=== PATIENT | female | born 1995 | race Caucasian/White ===

== ENCOUNTER → 2017-07-27 | Outpatient (CLI) | payer MEDICAID ==
[~2017-07-27] MED LIST: ACET1TAB43 PO; AMOX500C2 PO; AZIT250T12 PO; CODE-54 PO; DEXT15SY5 PO; DOCU100C37 PO; FERR-74 PO; IBUP-1773 PO; PREN-102 PO
--- NOTE | 2017-07-27 18:23 | Diagnostic Imaging Report ---
Transabdominal and transvaginal pelvic ultrasound. INDICATION: Pelvic pain. FINDINGS: The uterus is 7.8 x 4.2 x 3.7 cm. The endometrial stripe is 6 mm in thickness. There is no focal myometrial mass identified. The right ovary is 2.3 x 3.3 x 3.8 cm. The left ovary is 2.8 x 1.4 x 1.5 cm. Prominent veins are seen in the left adnexa. No solid mass in the adnexa identified. IMPRESSION: Incidental note of prominent veins in the left adnexa is seen. Dictated by: Dictated on workstation # [id number]
== END ==
LOC: RAD 12:27
PROVIDERS: ATTEND Obstetrics & Gynecology
DX: R10.2 Pelvic and perineal pain (principal)
CPT/HCPCS: 76830; 76856

== ENCOUNTER 2018-07-13 12:06 | Emergency (ER) | payer SELFPAY ==
[~2018-07-13] VITALS: Ht 167.6 cm; Wt 64.4 kg
[~2018-07-13 12:06] MED LIST changes: -FERR-74 PO; +FERR325T18 PO
--- OUTSIDE RECORDS SUMMARY | 2018-07-13 12:42 | XMS REPORT | Continuity of Care Document ---
Author Author [facility] Organization [facility] Address Unknown Phone Unavailable Allergies Active Description Code Type Severity Reaction Onset Reported/Identified Relationship to Patient Clinical Status Yes No Known Drug Allergies [id number] Drug Allergy Unknown N/A 03/05/2015 Medications There is no data. 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, UNSPECFIED 03/05/2015 MIKE PERDOMO DO Ot 525.9 DENTAL DISORDER NOS 03/05/2015 MIKE PERDOMO DO Ot 648.93 OTH CURR COND-ANTEPARTUM 06/04/2015 ALIZE ROUSE APRN Ot J40 BRONCHITIS, NOT SPECIFIED ACUTE OR CH 06/04/2015 ALIZE ROUSE APRN Ot Z33.1 STATE, INCIDENTAL 06/04/2015 ALIZE ROUSE APRN Ot Z3A.29 29 WEEKS GESTATION OF 08/15/2015 ANA REEVES DO Ot B95.1 STREPTOCOCCUS, GROUP B, CAUSING DISEASES 08/15/2015 ANA REEVES DO Ot D62 ACUTE POSTHEMORRHAGIC ANEMIA 08/15/2015 ANA REEVES DO, Ot O23.93 UNSP TRACT INFECTION IN , TH 08/15/2015 ANA REEVES DO, Ot O90.81 ANEMIA OF THE PUERPERIUM 08/15/2015 ANA REEVES DO Ot Z23 ENCOUNTER FOR IMMUNIZATION 08/15/2015 ANA REEVES DO Ot Z37.0 SINGLE LIVE 08/15/2015 ANA REEVES DO, Ot Z3A.39 39 WEEKS GESTATION OF 08/09/2017 ANA REEVES DO Ot R10.2 PELVIC AND PERINEAL PAIN Procedures Code Description Performed By Performed On [id number] DIVISION OF FEMALE PERINEUM, EXTERNAL AP 08/13/2015 [id number] DELIVERY OF PRODUCTS OF CONCEPTION, EXTE 08/13/2015 Results There is no data. Encounters ACCT No. Visit Date/Time Discharge Status Pt. Type Provider Facility Loc./Unit Complaint [id number] 07/27/2017 12:27:00 07/27/2017 23:59:59 CLS Outpatient ANA REEVES DO [facility] RAD ACUTE PELVIC PAIN [id number] 08/13/2015 01:04:00 08/15/2015 12:15:00 DIS Inpatient ANA REEVES DO [facility] LDRP LABOR [id number] 06/04/2015 15:29:00 06/04/2015 15:49:00 DIS Emergency ALIZE ROUSE APRN [facility] ER COUGH,DIFFICLUTY BREATHING AT 29 WEEKS [id number] 03/05/2015 01:10:00 03/05/2015 02:34:00 DIS Emergency MIKE PERDOMO DO [facility] ER DENTAL PAIN,16 WKS PREG [id number] 03/05/2015 05:07:27 ACT Document Registration
--- OUTSIDE RECORDS SUMMARY | 2018-07-13 12:42 | XMS REPORT | Clinical Summary ---
Author Author [facility] Organization [facility] Address Unknown Phone Unavailable Care Team Providers [facility] [employer] Professor Name Role Phone PCP Unavailable Allergies Not on File Current Medications Not on file Active Problems Not on file Social History Tobacco Use Types Packs/Day Years Used Date Never Assessed Sex Assigned at Date Recorded Not on file Last Filed Vital Signs Not on file Plan of Treatment Not on file Results Not on filefrom Last 3 Months
[2018-07-13] MEDS ORDERED: ONDANSETRON 4 MG/2 ML (SDV) Z0FRAN IVP ONE (12:45)
[2018-07-13 12:52] LABS: BILIRUBIN,URINE NEGATIVE (NEGATIVE); CLARITY,URINE CLEAR; COLOR,URINE YELLOW; GLUCOSE, URINE (UA) NEGATIVE (NEGATIVE); KETONES,URINE NEGATIVE (NEGATIVE); LEUKOCYTE ESTERASE ,URINE 1+ (NEGATIVE); NITRITE,URINE NEGATIVE (NEGATIVE); PH,URINE 5 (5-9); PROTEIN,URINE NEGATIVE (NEGATIVE); UROBILINOGEN,URINE NORMAL (NORMAL)
[2018-07-13 12:52] LABS: BASOPHILS % (AUTO) 0 % (0-10); EOSINOPHILS # (AUTO) 0.1 10^3/uL (0.0-0.3); EOSINOPHILS % (AUTO) 1 % (0-10); HEMATOCRIT 42 % (35-52); LYMPHOCYTES # (AUTO) 0.8 X 10^3 (1.0-4.0); LYMPHOCYTES % (AUTO) 13 % (12-44); MEAN CORPUSCULAR HEMOGLOBIN 30 PG (25-34); MEAN CORPUSCULAR HGB CONC 34 G/DL (32-36); MEAN CORPUSCULAR VOLUME 90 FL (80-99); MEAN PLATELET VOLUME 9.4 FL (7.4-10.4); MONOCYTES # (AUTO) 0.3 X 10^3 (0.0-1.0); MONOCYTES % (AUTO) 5 % (0-12); NEUTROPHILS # (AUTO) 4.5 X 10^3 (1.8-7.8); NEUTROPHILS % (AUTO) 80 % (42-75); PLATELET COUNT 226 10^3/uL (130-400); RED CELL DISTRIBUTION WIDTH 12.3 % (10.0-14.5); WHITE BLOOD COUNT 5.7 10^3/uL (4.3-11.0)
[2018-07-13] MEDS ORDERED: NS 250 ML (IVPB) BAG IV ONE (13:00)
[2018-07-13] MEDS ORDERED: CATHETER FLUSH 10 ML SYR IV PRN (13:00)
[2018-07-13] MEDS ORDERED: IOHEXOL 350 MG/ML 100 ML (OMNIPAQUE 350) VIAL IV ONE (13:00)
[2018-07-13] MEDS ORDERED: RECEIVED CONTRAST (Hold Metformin) IV SCH (13:00)
[2018-07-13 13:01] LABS: RBC,URINE RARE /HPF; WBC,URINE RARE /HPF
[2018-07-13 13:02] LABS: BACTERIA,URINE NEGATIVE /HPF; SQUAMOUS EPITHELIAL CELL,UR RARE /HPF
--- NOTE | 2018-07-13 13:06 | ED Abdominal Pain ---
General Chief Complaint: Abdominal/GI Problems Stated Complaint: ABD PAIN Nursing Triage Note: Pt ambulated to rm 10 w/o difficulties. Pt reports bilat abdominal pain that began this AM. Pt describes pain as shooting. Pt has rebound tenderness and hx of IBS. Pt reports taking 4 200 mg IBU. Sepsis Screen: No Definite Risk Source of Information: Patient Exam Limitations: No Limitations History of Present Illness Date Seen by Provider: Jul 13, 2018 Time Seen by Provider: 12:30 Initial Comments Patient is a 22-year-old female who presents to the emergency room with complaints of lower abdominal pain to the right and left lower quadrants. She reports a she having/sharp pain that shoots up towards in her abdomen. She reports taking 800 mg of ibuprofen without relief. She reports history of irritable bowel syndrome. Denies any fevers, vomiting, diarrhea, constipation, and reports nausea. She reports pain started at 0530. Timing/Duration: 4-6 Hours Severity/Quality: Sharp Location: RLQ, LLQ Associated Symptoms: Nausea/Vomiting Allergies and Home Medications Allergies Coded Allergies: No Known Drug Allergies (Unverified , 03/05/15) Home Medications Acetaminophen with Codeine 1 Each Tablet, 1-2 TAB PO Q4H PRN for MODERATE TO SEVERE PAIN Prescribed by: ANA REEVES on 08/13/15 1626 Amoxicillin 500 Mg Capsule, 500 MG PO TID Prescribed by: PATRICK VASQUEZ on 08/15/15 1019 Docusate Sodium 100 Mg Capsule, 100 MG PO BID PRN for CONSTIPATION Prescribed by: ANA REEVES on 08/13/15 1626 Ferrous Sulfate 325 Mg Tablet, 325 MG PO DAILY@0700 Prescribed by: NAA REEVES on 08/13/15 1626 Ibuprofen 600 Mg Tablet, 600 MG PO Q6H Prescribed by: ANA REEVES on 08/13/15 1626 Vits #93/Iron Fum/Fa 1 Each Tablet, 1 EACH PO DAILY, (Reported) Patient Home Medication List Home Medication List Reviewed: Yes Review of Systems Review of Systems Constitutional: no symptoms reported, see HPI Gastrointestinal: See HPI, Abdominal Pain, Nausea All Other Systems Reviewed Negative Unless Noted: Yes Past Mzouyja-Whhbgc-Jevufj Hx Past Med/Social Hx: Reviewed Nursing Past Med/Soc Hx Patient Social History Alcohol Use: Denies Use Recreational Drug Use: No Smoking Status: Current Everyday Smoker Type Used: Cigarettes 2nd Hand Smoke Exposure: Yes Recent Foreign Travel: No Contact w/Someone Who Travel: No Recent Infectious Disease Expo: No Immunizations Up To Date Tetanus Booster (TDap): Unknown Past Medical History Surgeries: Yes Adenoidectomy, Ear Surgery, Gallbladder, Tonsillectomy Respiratory: No Cardiac: No Neurological: No Reproductive Disorders: No Sexually Transmitted Disease: No Gastrointestinal: No Musculoskeletal: No Endocrine: No Cancer: No Psychosocial: No Integumentary: No Blood Disorders: No Adverse Reaction/Blood Tranf: No Family Medical History Reviewed Nursing Family Hx Myocardial infarction 19 FATHER, Onset: - Thyroid disease 19 FATHER Physical Exam Vital Signs Vital Signs - First Documented 07/13/18 12:26 Temp 97.0 Pulse 66 Resp 14 B/P (MAP) 102/66 (78) Pulse Ox 99 O2 Delivery Room Air Capillary Refill : Less Than 3 Seconds Height/Weight/BMI Height: 5'6.00" Weight: 142lbs. oz. 64.479685nz; BMI Method:Stated General Appearance: WD/WN, no apparent distress Respiratory: chest non-tender, lungs clear, normal breath sounds, no respiratory distress, no accessory muscle use Cardiovascular: normal peripheral pulses, regular rate, rhythm, no edema, no gallop, no JVD, no murmur Gastrointestinal: normal bowel sounds, soft, no organomegaly, no pulsatile mass , tenderness (right and left lower quadrant tenderness.), other (patient does have positive psoas and maynor sign) Neurologic/Psychiatric: alert, oriented x 3 Skin: normal color, warm/dry Progress/Results/Core Measures Results/Orders Lab Results Laboratory Tests Test 07/13/18 12:35 07/13/18 12:40 Range/Units Urine Color YELLOW Urine Clarity CLEAR Urine pH 5 5-9 Urine Specific [place] 1.025 H 1.016-1.022 Urine Protein NEGATIVE NEGATIVE Urine Glucose (UA) NEGATIVE NEGATIVE Urine Ketones NEGATIVE NEGATIVE Urine Nitrite NEGATIVE NEGATIVE Urine Bilirubin NEGATIVE NEGATIVE Urine Urobilinogen NORMAL NORMAL MG/DL Urine Leukocyte Esterase 1+ H NEGATIVE Urine RBC (Auto) 1+ H NEGATIVE Urine RBC RARE /HPF Urine WBC RARE /HPF Urine Squamous Epithelial Cells RARE /HPF Urine Crystals NONE /LPF Urine Bacteria NEGATIVE /HPF Urine Casts NONE /LPF Urine Mucus SMALL H /LPF Urine Culture Indicated NO Urine Test NEGATIVE NEGATIVE White Blood Count 5.7 4.3-11.0 10^3/uL Red Blood Count 4.60 4.35-5.85 10^6/uL Hemoglobin 14.0 11.5-16.0 G/DL Hematocrit 42 35-52 % Mean Corpuscular Volume 90 80-99 FL Mean Corpuscular Hemoglobin 30 25-34 PG Mean Corpuscular Hemoglobin Concent 34 32-36 G/DL Red Cell Distribution Width 12.3 10.0-14.5 % Platelet Count 226 130-400 10^3/uL Mean Platelet Volume 9.4 7.4-10.4 FL Neutrophils (%) (Auto) 80 H 42-75 % Lymphocytes (%) (Auto) 13 12-44 % Monocytes (%) (Auto) 5 0-12 % Eosinophils (%) (Auto) 1 0-10 % Basophils (%) (Auto) 0 0-10 % Neutrophils # (Auto) 4.5 1.8-7.8 X 10^3 Lymphocytes # (Auto) 0.8 L 1.0-4.0 X 10^3 Monocytes # (Auto) 0.3 0.0-1.0 X 10^3 Eosinophils # (Auto) 0.1 0.0-0.3 10^3/uL Basophils # (Auto) 0.0 0.0-0.1 10^3/uL Sodium Level 139 135-145 MMOL/L Potassium Level 4.0 3.6-5.0 MMOL/L Chloride Level 108 H 98-107 MMOL/L Carbon Dioxide Level 22 21-32 MMOL/L Anion Gap 9 5-14 MMOL/L Blood Urea Nitrogen 12 7-18 MG/DL Creatinine 0.71 0.60-1.30 MG/DL Estimat Glomerular Filtration Rate > 60 BUN/Creatinine Ratio 17 Glucose Level 88 70-105 MG/DL Calcium Level 9.1 8.5-10.1 MG/DL Corrected Calcium 8.5-10.1 MG/DL Total Bilirubin 1.1 H 0.1-1.0 MG/DL Aspartate Amino Transf (AST/SGOT) 19 5-34 U/L Alanine Aminotransferase (ALT/SGPT) 19 0-55 U/L Alkaline Phosphatase 39 L 40-136 U/L Total Protein 7.5 6.4-8.2 GM/DL Albumin 4.6 H 3.2-4.5 GM/DL Amylase Level 48 25-125 U/L Lipase 16 8-78 U/L My Orders Orders - C[facility] Ua Culture If Indicated (07/13/18 12:14) Hcg,Qualitative Urine (07/13/18 12:14) Ondansetron Injection (Zofran Injectio (07/13/18 12:45) Comprehensive Metabolic Panel (07/13/18 12:34) Lipase (07/13/18 12:34) Amylase (07/13/18 12:34) Saline Lock/Iv-Start (07/13/18 12:34) Cbc With Automated Diff (07/13/18 12:34) Ct Abdomen/Pelvis W (07/13/18 12:34) Iohexol Injection (Omnipaque 350 Mg/Ml 1 (07/13/18 13:00) Contrast Received (Contrast Received) (07/13/18 13:00) Sodium Chloride Flush (Catheter Flush Sy (07/13/18 13:00) Ns (Ivpb) (Sodium Chloride 0.9%) (07/13/18 13:00) Medications Given in ED Vital Signs/I&O 07/13/18 07/13/18 12:26 14:23 Temp 97.0 97.0 Pulse 66 66 Resp 14 14 B/P (MAP) 102/66 (78) 102/66 (78) Pulse Ox 99 99 O2 Delivery Room Air Room Air Blood Pressure Mean: 78 Progress Progress Note : Time: 14:11 Progress Note I have seen and evaluated the patient. I've informed her of her laboratory and imaging studies. She agrees with plans for discharge, follow-up with Dr. Hu, return precautions were given. She denies needed for nausea medication at home stronger pain medication. Diagnostic Imaging Diagonstic Imaging: CT Comments NAME: [facility] REC#: [id number] PHYSICIAN: CAMPOS ZHU CC: [facility]; DORIS MCHUGH MD Page 2 of 2 RADIOLOGY REPORT [facility] [place], [place] CC: CAMPOS ZHU; DORIS MCHUGH MD Page 1 of 1 RADIOLOGY REPORT NAME: [facility] REC#: [id number] PT STATUS: REG ER : 1995 PHYSICIAN: CAMPOS ZHU ADMIT DATE: 07/13/18/ER Signed Date of Exam: 07/13/18 CT ABDOMEN/PELVIS W PROCEDURE: CT abdomen and pelvis with contrast. TECHNIQUE: Multiple contiguous axial images were obtained through the abdomen and pelvis after administration of intravenous contrast. INDICATION: Sharp abdominal pain. No prior studies are available for comparison. The lung bases are clear. No discrete liver mass is identified. The liver is mildly enlarged at 21.9 cm. The gallbladder is surgically absent. No biliary ductal dilatation is identified. The pancreas and spleen are unremarkable. No adrenal mass is detected. The kidneys are unremarkable. Aorta is non-aneurysmal. No central, retroperitoneal or mesenteric lymphadenopathy is detected. Bowel loops appear to be normal caliber. No obstruction is seen. There is no ascites. Appendix is difficult to visualize but no inflammatory process in the abdomen is seen. IMPRESSION: 1. Hepatomegaly. 2. Otherwise unremarkable CT of the abdomen and pelvis. No acute features detected. Dictated by: Dictated on workstation # [id number] Dict: 07/13/18 1348 Trans: 07/13/18 1354 Interpreted by: DORIS MCHUGH MD Electronically signed by: DORIS MCHUGH MD 07/13/18 1354 Reviewed: Reviewed by Me Departure Impression Primary Impression: Abdominal pain Disposition: 01 HOME, SELF-CARE Condition: Stable/Unchanged Departure-Patient Inst. Decision time for Depature: 14:13 Referrals: CHARLI NICHOLS MD (PCP/Family) Primary Care Physician Patient Instructions: Acute Abdomen (Belly Pain), Adult (DC) Add. Discharge Instructions: Follow-up with her primary care provider within 1 week for recheck. You may use ibuprofen and Tylenol as directed by the bottle for pain relief. Return back to the emergency room for any worsening symptoms or concerns as needed. All discharge instructions reviewed with patient and/or family. Voiced understanding. CAMPOS ZHU Jul 13, 2018 13:06
[2018-07-13 13:14] LABS: ALANINE AMINOTRANSFERASE 19 U/L (0-55); ALBUMIN 4.6 GM/DL (3.2-4.5); ALKALINE PHOSPHATASE 39 U/L (40-136); AMYLASE 48 U/L (25-125); BILIRUBIN,TOTAL 1.1 MG/DL (0.1-1.0); BUN/CREATININE RATIO 17; CALCIUM 9.1 MG/DL (8.5-10.1); CARBON DIOXIDE 22 MMOL/L (21-32); CHLORIDE 108 MMOL/L (98-107); CREATININE SERUM 0.71 MG/DL (0.60-1.30); GFR ESTIMATED > 60; GLUCOSE 88 MG/DL (70-105); LIPASE 16 U/L (8-78); SODIUM 139 MMOL/L (135-145); TOTAL PROTEIN 7.5 GM/DL (6.4-8.2)
--- NOTE | 2018-07-13 13:53 | Diagnostic Imaging Report ---
PROCEDURE: CT abdomen and pelvis with contrast. TECHNIQUE: Multiple contiguous axial images were obtained through the abdomen and pelvis after administration of intravenous contrast. INDICATION: Sharp abdominal pain. No prior studies are available for comparison. The lung bases are clear. No discrete liver mass is identified. The liver is mildly enlarged at 21.9 cm. The gallbladder is surgically absent. No biliary ductal dilatation is identified. The pancreas and spleen are unremarkable. No adrenal mass is detected. The kidneys are unremarkable. Aorta is non-aneurysmal. No central, retroperitoneal or mesenteric lymphadenopathy is detected. Bowel loops appear to be normal caliber. No obstruction is seen. There is no ascites. Appendix is difficult to visualize but no inflammatory process in the abdomen is seen. IMPRESSION: 1. Hepatomegaly. 2. Otherwise unremarkable CT of the abdomen and pelvis. No acute features detected. Dictated by: Dictated on workstation # [id number]
[2018-07-13 14:23] VITALS: BP 102/66
== END 2018-07-13 14:23 | disposition home or self-care (01) ==
LOC: EDUNIT# 12:06 → ER 12:07
DX: R10.31 Right lower quadrant pain (principal); R10.32 Left lower quadrant pain; F17.210 Nicotine dependence, cigarettes, uncomplicated; Z87.19 Personal history of other diseases of the digestive system; Z90.89 Acquired absence of other organs; Z82.49 Family history of ischemic heart disease and other diseases of the circulatory system
CPT/HCPCS: 36415; 74177; 80053; 81000; 82150; 83690; 84703; 85025; 96374

== ENCOUNTER → 2019-09-05 | Outpatient (CLI) | payer BC ==
--- NOTE | 2019-09-05 12:14 | Diagnostic Imaging Report ---
INDICATION: survey. TECHNIQUE: Multiple real-time grayscale images were obtained over the gravid uterus. COMPARISON: None FINDINGS: There is a single live fetus in a breech presentation. heart rate was recorded at 152 BPM. Placenta is posterior. Amniotic fluid index is 9.2 cm. Cervical length is 5.2 cm. kidneys, bladder and stomach are unremarkable. brain is unremarkable. There is a four-chamber heart. There is a three-vessel cord with normal insertion. The spine is unremarkable. profile as well as nose and lips is limited due to position. Biometrical measurements are as follows: Biparietal 4.69 cm, age 20 weeks 2 days. Head circumference 18.01 cm, age 20 weeks 4 days. Abdominal circumference 15.63 cm, age 20 weeks 6 days. Femur length 3.20 cm, age 20 weeks 0 days. Sonographic estimate age: 20 weeks 3 days. Sonographic estimated date of delivery: 01/20/2020. Estimated Weight: 352 gm (+/- 51 gm). LMP percentile: 69%. heart rate: 152 beats per minute. number: 1 of 1. IMPRESSION: Single live IUP 20 weeks 3 days gestational age. Estimated date of confinement sonographically is 01/20/2020. Dictated by: Dictated on workstation # [id number]
== END ==
LOC: RAD 09:58
PROVIDERS: ATTEND Nurse Practitioner Women's Health
DX: Z36.9 Encounter for antenatal screening, unspecified (principal); Z3A.20 20 weeks gestation of pregnancy
CPT/HCPCS: 76805

== ENCOUNTER 2020-01-23 18:56 | Inpatient (IN) | payer BC, MEDICAID ==
[2020-01-22 19:30] VITALS: BP 111/67
[~2020-01-23] VITALS: Ht 165.1 cm; Wt 105.1 kg
[2020-01-23] VITALS (16 sets, daily range): BP systolic 98–120; BP diastolic 55–79
--- NOTE | 2020-01-23 19:05 | NUR ---
REPORT RECEIVED FROM STRUCTURES ASSEMBLER STATING PT WALKED UP AND HEIGHT AND WEIGHT WERE OBTAINED AND PT WAS IN BATHROOM GOWNING AND COLLECTING CLEAN CATCH UA.
--- NOTE | 2020-01-23 19:15 | NUR ---
PT TO BED AND EFM X2 INITIATED.
[2020-01-23] MEDS ORDERED: D5 LR IV SOLUTION 1,000 ML IV SCH (19:42)
[2020-01-23] MEDS ORDERED: D5 LR IV SOLUTION 1,000 ML IV ONE (19:45)
[2020-01-23 20:18] LABS: BILIRUBIN,URINE NEGATIVE (NEGATIVE); CLARITY,URINE CLOUDY; COLOR,URINE YELLOW; GLUCOSE, URINE (UA) NEGATIVE (NEGATIVE); KETONES,URINE NEGATIVE (NEGATIVE); LEUKOCYTE ESTERASE ,URINE 1+ (NEGATIVE); NITRITE,URINE NEGATIVE (NEGATIVE); PROTEIN,URINE 1+ (NEGATIVE)
[2020-01-23 20:18] LABS: BASOPHILS % (AUTO) 0 % (0-10); EOSINOPHILS # (AUTO) 0.1 10^3/uL (0.0-0.3); EOSINOPHILS % (AUTO) 1 % (0-10); HEMATOCRIT 36 % (35-52); HEMOGLOBIN 12.7 G/DL (11.5-16.0); LYMPHOCYTES # (AUTO) 1.7 X 10^3 (1.0-4.0); LYMPHOCYTES % (AUTO) 13 % (12-44); MEAN CORPUSCULAR HEMOGLOBIN 32 PG (25-34); MEAN CORPUSCULAR HGB CONC 35 G/DL (32-36); MEAN CORPUSCULAR VOLUME 90 FL (80-99); MEAN PLATELET VOLUME 10.7 FL (7.4-10.4); MONOCYTES # (AUTO) 0.9 X 10^3 (0.0-1.0); MONOCYTES % (AUTO) 7 % (0-12); NEUTROPHILS # (AUTO) 9.9 X 10^3 (1.8-7.8); NEUTROPHILS % (AUTO) 79 % (42-75); PLATELET COUNT 215 10^3/uL (130-400); RED CELL DISTRIBUTION WIDTH 12.7 % (10.0-14.5); WHITE BLOOD COUNT 12.6 10^3/uL (4.3-11.0)
[2020-01-23 20:24] LABS: WBC,URINE 25-50 /HPF
[2020-01-23 20:25] LABS: AMORPHOUS SEDIMENT,UR FEW AMOR URATES /LPF; BACTERIA,URINE FEW /HPF
[2020-01-23] MEDS ORDERED: ACETAMINOPHEN 500 MG TAB (TYLENOL) ONE (20:51)
[2020-01-23] MEDS ORDERED: ACETAMINOPHEN 500 MG TAB (TYLENOL) PO ONE (20:54)
[2020-01-23] MEDS ORDERED: OXYTOCIN PRE-MIX DRIP 500 ML IV ONE (21:05)
[2020-01-23] MEDS ORDERED: LIDOCAINE/EPI 2% 1:200,00 (XYLOCAINE) 20 ML VIAL ONE (21:17)
[2020-01-23] MEDS ORDERED: OXYTOCIN DRIP 30 UNITS/500 ML BAG IV ONE ×2 (21:29→22:09)
[2020-01-23] MEDS ORDERED: OXYTOCIN PRE-MIX DRIP 500 ML IV SCH (21:51)
[2020-01-23] MEDS ORDERED: CATHETER FLUSH 10 ML SYR IV SCH ×2 (22:00)
[2020-01-23] MEDS ORDERED: MEASLES,MUMPS,RUBELLA 1 EA INJ SQ ONE (22:00)
[2020-01-23] MEDS ORDERED: TETANUS,DIPTH,PERTUSS P/F (BOOSTRIX) 0.5 ML VIAL IM ONE (22:00)
[2020-01-23] MEDS ORDERED: WITCH HAZEL(TUCKS) 40 EA JAR TOP PRN (22:00)
[2020-01-23] MEDS ORDERED: DIBUCAINE (NUPERCAINAL) 1% OINT 30 GM TOP PRN (22:00)
[2020-01-23] MEDS ORDERED: BENZOCAINE/MENTHOL (DERMOPLAST) 60 ML CAN TP PRN (22:00)
[2020-01-23] MEDS ORDERED: HYDROcodone/APAP 5 MG/325 MG (LORTAB) TAB PO PRN (22:00)
--- NOTE | 2020-01-23 22:00 | History & Physical-OB ---
OB - Chief Complaint & HPI Date/Time Date of Admission: Date of Admission: Jan 23, 2020 at 19:20 Date seen by a Provider: Jan 23, 2020 Time Seen by a Provider: 20:20 Chief Complaint/History OB-Reason for Admission/Chief: Onset of Labor Hx : 2 Hx Para: 1 Expected Date of Delivery: Jan 23, 2020 Gestational Age in Weeks: 40 Gestational Age in Days: 0 Admission Nurse Assessment Rev: Yes Allergies and Home Medications Allergies Coded Allergies: No Known Drug Allergies (Unverified , 03/05/15) Home Medications Acetaminophen with Codeine 1 Each Tablet, 1-2 TAB PO Q4H PRN for MODERATE TO SEVERE PAIN Prescribed by: ANA REEVES on 08/13/15 1626 Amoxicillin 500 Mg Capsule, 500 MG PO TID Prescribed by: PATRICK VASQUEZ on 08/15/15 1019 Docusate Sodium 100 Mg Capsule, 100 MG PO BID PRN for CONSTIPATION Prescribed by: ANA REEVES on 08/13/15 1626 Ferrous Sulfate 325 Mg Tablet, 325 MG PO DAILY@0700 Prescribed by: ANA REEVES on 08/13/15 1626 Ibuprofen 600 Mg Tablet, 600 MG PO Q6H Prescribed by: ANA REEVES on 08/13/15 1626 Vits #93/Iron Fum/Fa 1 Each Tablet, 1 EACH PO DAILY, (Reported) Patient Home Medication List Home Medication List Reviewed: Yes OB - History Hx of Present Care: Yes Ultrasounds: Normal mid trimester US Obstetrical Complications: None Medical Complications: None Delivery History Hx Blood Disorders: No Adverse Rxn to Tranfusion: No Patient Past Medical History na Social History/Family History Recent Infectious Disease Expo: No Sexually Transmitted Disease: No Alcohol Use: Denies Use Recreational Drug Use: No 2nd Hand Smoke Exposure: Yes Immunizations Tetanus Booster (TDap): Unknown OB - Admission Exam Physical Exam HEENT: NCAT Heart: Rhythm Normal Lungs: Clear Abdomen: Gravid Extremities: Normal Reflexes: Normal Cervical Dilatation: 6cm Effacement: 75% Station: -1 Membranes: Intact Heart Rate: 130's Accelerations: Accelerations Present Decelerations: No Decelerations Short Term Variability: Present Produce Runner Variability: Average (6-25) Contractions on Admission: < 5 Minutes Apart Intensity: Firm Labs Laboratory Tests Test 01/23/20 19:15 01/23/20 19:50 Range/Units Urine Color YELLOW Urine Clarity CLOUDY Urine pH 6.0 5-9 Urine Specific [place] >=1.030 1.016-1.022 Urine Protein 1+ H NEGATIVE Urine Glucose (UA) NEGATIVE NEGATIVE Urine Ketones NEGATIVE NEGATIVE Urine Nitrite NEGATIVE NEGATIVE Urine Bilirubin NEGATIVE NEGATIVE Urine Urobilinogen 0.2 < = 1.0 MG/DL Urine Leukocyte Esterase 1+ H NEGATIVE Urine RBC (Auto) 3+ H NEGATIVE Urine RBC 10-25 H /HPF Urine WBC 25-50 H /HPF Urine Squamous Epithelial Cells 10-25 H /HPF Urine Crystals PRESENT H /LPF Urine Amorphous Sediment FEW LACY URATES H /LPF Urine Bacteria FEW H /HPF Urine Casts NONE /LPF Urine Mucus SMALL H /LPF Urine Culture Indicated YES White Blood Count 12.6 H 4.3-11.0 10^3/uL Red Blood Count 4.02 L 4.35-5.85 10^6/uL Hemoglobin 12.7 11.5-16.0 G/DL Hematocrit 36 35-52 % Mean Corpuscular Volume 90 80-99 FL Mean Corpuscular Hemoglobin 32 25-34 PG Mean Corpuscular Hemoglobin Concent 35 32-36 G/DL Red Cell Distribution Width 12.7 10.0-14.5 % Platelet Count 215 130-400 10^3/uL Mean Platelet Volume 10.7 H 7.4-10.4 FL Neutrophils (%) (Auto) 79 H 42-75 % Lymphocytes (%) (Auto) 13 12-44 % Monocytes (%) (Auto) 7 0-12 % Eosinophils (%) (Auto) 1 0-10 % Basophils (%) (Auto) 0 0-10 % Neutrophils # (Auto) 9.9 H 1.8-7.8 X 10^3 Lymphocytes # (Auto) 1.7 1.0-4.0 X 10^3 Monocytes # (Auto) 0.9 0.0-1.0 X 10^3 Eosinophils # (Auto) 0.1 0.0-0.3 10^3/uL Basophils # (Auto) 0.0 0.0-0.1 10^3/uL OB - Assessment/Plan/Diagnosis Assessment Assessment: active labor Admission Dx 24 yo @ 40 weeks Active labor gbs neg Admission Status: Inpatient Order (span 2 midnights) Reason for Inpatient Admission: active labor at term Plan Plan: Expectant Management ANA REEVES DO Jan 23, 2020 22:00
--- NOTE | 2020-01-23 22:07 | OB Labor & Delivery Record ---
L&D History Date of Service Date of Service: Jan 23, 2020 History Expected Date of Delivery: Jan 23, 2020 Gestational Age in Weeks: 40 Hx : 2 Hx Para: 1 Complications Events: Routine care Operative Indications (Cesarea: N/A-Vaginal Delivery Intrapartal Events: None L&D Stage1 Stage One Onset of Labor - Date: Jan 23, 2020 Monitors and Tracing Monitor Mode: External Monitor Accelerations: Uniform Monitor Decelerations: Variable Station: -1 Skilled Nursing Variability: Average (6-10) Short Term Variability: Present Presentation: Vertex Rupture of Membranes Spontaneous Ruture of Membrane: Yes Amniotic Membrane Rupture Time: 17:30 Amniotic Membrane Fluid Desc.: Clear Vaginal Bleeding Description: Normal Show Progress/Notes Patient presented in active labor and progressed to complete and + 2 station with no analgesia L&D Stage2 Stage Two Stage II Date: Jan 23, 2020 Monitors and Tracing Monitor Mode: External Monitor Accelerations: Uniform Monitor Decelerations: Variable Skilled Nursing Variability: Average (6-10) Short Term Variability: Present Position: Right Occiput Anterior Presentation: Vertex Cord Descript/Complications Cord Vessel Description: 3 Vessels Delivery Type Delivery Method: Spontaneous Vaginal Anterior Shoulder: Right Episiotomy/Perineal Laceration Laceraction(s)/Extensions: Yes Degree (describe repair) Right labial avulsion, and 2nd degree perineal laceration repaired using 3-0 rapide in usual fashion Condition of Infant Delivery 1 minute Comment: 8 5 minute Comment: 9 Notes Live male infant weight 9lbs 4 oz Condition of Condition of : Living Exam: No Observed Abnormalities Resuscitation Resuscitation: N/A - Spontaneous Resp L&D Stage3 Stage Three Stage III Date: Jan 23, 2020 Pictocin Pitocin Administration Comment: 30 mu / wide open after delivery of placenta Placenta Delivery Placenta Delivery: Spontaneous Delivery Summary Summary Estimated blood loss (mL): 350 Attending at delivery: Ana Reeves DO Condition of Delivery Examined: Cervix Examined, Uterus Explored Post Hemorrhage: No Condition of Mother stable Condition of (s) stable ANA REEVES DO Jan 23, 2020 22:07
--- NOTE | 2020-01-23 23:30 | NUR ---
PT AMB TO BATHROOM AND PERICARE DONE. LOCHIA LIGHT. PT WISHES TO AMB TO ROOM.
[2020-01-23] MEDS: IBUPROFEN 600 MG (MOTRIN) TAB PO SCH (23:47)
[2020-01-24 00:15] VITALS: BP 103/57
--- NOTE | 2020-01-24 01:15 | NUR ---
PT IS EXHAUSTED AND HAS FED A BOTTLE HE HAS BEEN PRETTY MUCH CONTINUOUSLY SINCE . PT DENIES ANY NEEDS AT THIS TIME. TO NSY SO MOM MAY REST.
[2020-01-24 05:10] VITALS: BP 120/73
--- NOTE | 2020-01-24 05:10 | NUR ---
PT AWAKE AND DRESSED. TO MOM'S ROOM PER REQUEST.
--- NOTE | 2020-01-24 05:30 | NUR ---
LAB HERE FOR AM LABS.
[2020-01-24 06:01] LABS: BASOPHILS % (AUTO) 0 % (0-10); EOSINOPHILS % (AUTO) 0 % (0-10); HEMATOCRIT 33 % (35-52); HEMOGLOBIN 10.8 G/DL (11.5-16.0); LYMPHOCYTES # (AUTO) 1.8 X 10^3 (1.0-4.0); LYMPHOCYTES % (AUTO) 13 % (12-44); MEAN CORPUSCULAR HEMOGLOBIN 30 PG (25-34); MEAN CORPUSCULAR HGB CONC 33 G/DL (32-36); MEAN CORPUSCULAR VOLUME 92 FL (80-99); MEAN PLATELET VOLUME 10.9 FL (7.4-10.4); MONOCYTES # (AUTO) 1.1 X 10^3 (0.0-1.0); MONOCYTES % (AUTO) 8 % (0-12); NEUTROPHILS # (AUTO) 11.1 X 10^3 (1.8-7.8); NEUTROPHILS % (AUTO) 79 % (42-75); PLATELET COUNT 205 10^3/uL (130-400); RED CELL DISTRIBUTION WIDTH 12.8 % (10.0-14.5); WHITE BLOOD COUNT 14.1 10^3/uL (4.3-11.0)
[2020-01-24] MEDS: IBUPROFEN 600 MG (MOTRIN) TAB PO SCH ×3 (06:23→19:35)
--- NOTE | 2020-01-24 06:27 | NUR ---
PT WORKING ON GETTING TO EAT. PT DENIES ANY NEEDS OR C/O'S AT THIS TIME. MOTRIN ADMINISTERED.
[2020-01-24 10:32] VITALS: BP 110/64
[2020-01-24] MEDS: DOCUSATE SODIUM 100 MG (COLACE) CAP PO SCH ×2 (10:34→19:35)
[2020-01-24] MEDS: PRENATAL VITAMIN 1 EA TAB PO SCH (10:35)
[2020-01-24] MEDS: FERROUS SULF 325 MG (IRON) TAB PO SCH (10:35)
--- NOTE | 2020-01-24 10:43 | Postpartum Progress Note ---
NATALEE MISHRA,MED STUDENT 01/24/20 1043: Note Note Day # 1 Subjective: Patient is without complaints. Ambulating, voiding. Tolerating a regular diet without nausea or vomiting. Normal lochia. Pain is well controlled with oral pain medications. Physical Exam: General - Alert and oriented, no apparent distress Abdomen - Soft, appropriately tender to palpation, non-distended, fundus firm at umbilicus Extremities - no edema Assessment: Post- day # 1, status post vaginal delivery. Acute blood loss anemia Recovering well, hemodynamically stable Plan: Routine care. Encourage breast feeding. Encourage ambulation. Ferrous sulfate supplementation. Plan for discharge tomorrow Vitals - Labs Vital Signs - I&O Vital Signs Date Time Temp Pulse Resp B/P (MAP) Pulse Ox O2 Delivery O2 Flow Rate FiO2 01/24/20 10:32 36.8 88 18 110/64 (79) 01/24/20 05:10 36.7 74 16 120/73 (89) 01/24/20 00:15 36.7 76 16 103/57 (72) 01/23/20 23:05 76 16 109/55 (73) 01/23/20 22:50 82 16 98/63 (75) 01/23/20 22:35 71 16 105/58 (74) 01/23/20 22:21 71 16 105/73 (84) 01/23/20 22:05 51 16 100/64 (76) 01/23/20 21:50 84 18 116/68 (84) 01/23/20 21:36 36.9 80 18 119/79 (92) 01/23/20 21:10 71 18 120/73 (89) 01/23/20 20:55 70 18 113/69 (84) 01/23/20 20:40 81 16 108/64 (79) 01/23/20 20:25 36.7 87 18 117/70 (86) 01/23/20 20:10 81 16 108/64 (79) 01/23/20 19:55 81 16 107/65 (79) 01/23/20 19:40 81 16 108/66 (80) 01/23/20 19:30 36.7 90 18 98 Room Air 01/23/20 19:25 36.7 90 18 111/67 (82) 98 Room Air I & O 01/24/20 07:00 Intake Total 450 ml Balance 450 ml Labs Laboratory Tests 01/23/20 19:15: Urine Color YELLOW, Urine Clarity CLOUDY, Urine pH 6.0, Urine Specific [place] >=1.030, Urine Protein 1+H, Urine Glucose (UA) NEGATIVE, Urine Ketones NEGATIVE, Urine Nitrite NEGATIVE, Urine Bilirubin NEGATIVE, Urine Urobilinogen 0.2, Urine Leukocyte Esterase 1+H, Urine RBC (Auto) 3+H, Urine RBC 10-25H, Urine WBC 25-50H , Urine Squamous Epithelial Cells 10-25H, Urine Crystals PRESENTH, Urine Amorphous Sediment FEW LACY URATESH, Urine Bacteria FEWH, Urine Casts NONE, Urine Mucus SMALLH, Urine Culture Indicated YES 01/23/20 19:50: White Blood Count 12.6H, Red Blood Count 4.02L, Hemoglobin 12.7, Hematocrit 36, Mean Corpuscular Volume 90, Mean Corpuscular Hemoglobin 32, Mean Corpuscular Hemoglobin Concent 35, Red Cell Distribution Width 12.7, Platelet Count 215, Mean Platelet Volume 10.7H, Neutrophils (%) (Auto) 79H, Lymphocytes (%) (Auto) 13, Monocytes (%) (Auto) 7, Eosinophils (%) (Auto) 1, Basophils (%) (Auto) 0, Neutrophils # (Auto) 9.9H, Lymphocytes # (Auto) 1.7, Monocytes # (Auto) 0.9, Eosinophils # (Auto) 0.1, Basophils # (Auto) 0.0 01/24/20 05:22: White Blood Count 14.1H, Red Blood Count 3.56L, Hemoglobin 10.8L, Hematocrit 33L , Mean Corpuscular Volume 92, Mean Corpuscular Hemoglobin 30, Mean Corpuscular Hemoglobin Concent 33, Red Cell Distribution Width 12.8, Platelet Count 205, Mean Platelet Volume 10.9H, Neutrophils (%) (Auto) 79H, Lymphocytes (%) (Auto) 13, Monocytes (%) (Auto) 8, Eosinophils (%) (Auto) 0, Basophils (%) (Auto) 0, Neutrophils # (Auto) 11.1H, Lymphocytes # (Auto) 1.8, Monocytes # (Auto) 1.1H, Eosinophils # (Auto) 0.0, Basophils # (Auto) 0.0 ANA REEVES DO 01/25/20 0733: Note Note Verification and Attestation of Medical Student E/M Service A medical student performed and documented this service in my presence. I reviewed and verified all information documented by the medical student and made modifications to such information, when appropriate. I personally performed the physical exam and medical decision making. Ana Reeves, Jan 25, 2020,07:33 NATALEE MISHRA,MED STUDENT Jan 24, 2020 10:43 ANA REEVES DO Jan 25, 2020 07:33
[2020-01-24 14:30] VITALS: BP 102/54
[2020-01-24 20:00] VITALS: BP 98/63
[2020-01-25] MEDS: IBUPROFEN 600 MG (MOTRIN) TAB PO SCH ×2 (01:46→09:00)
[2020-01-25 02:00] VITALS: BP 109/58
[2020-01-25] MEDS: PRENATAL VITAMIN 1 EA TAB PO SCH (06:39)
--- NOTE | 2020-01-25 07:17 | Postpartum Progress Note ---
Note Note Day # 2 Subjective: Patient is without complaints. Ambulating, voiding. Tolerating a regular diet without nausea or vomiting. Normal lochia. Pain is well controlled with oral pain medications. Physical Exam: General - Alert and oriented, no apparent distress Abdomen - Soft, appropriately tender to palpation, non-distended, fundus firm at umbilicus Extremities - no edema Assessment: Post- day # 2, status post vaginal delivery. Acute blood loss anemia Recovering well, hemodynamically stable Plan: Routine care. Encourage breast feeding. Encourage ambulation. Ferrous sulfate supplementation. Plan for discharge today Vitals - Labs Vital Signs - I&O Vital Signs Date Time Temp Pulse Resp B/P (MAP) Pulse Ox O2 Delivery O2 Flow Rate FiO2 01/25/20 02:00 36.2 72 16 109/58 (75) 98 Room Air 01/24/20 20:00 36.4 78 18 98/63 (75) 97 Room Air 01/24/20 14:30 36.8 87 20 102/54 (70) Room Air 01/24/20 10:32 36.8 88 18 110/64 (79) Labs Microbiology 01/23/20 Urine Culture - Final, Complete 3 or more isolates NATALEE MISHRA,MED STUDENT Jan 25, 2020 07:17
--- NOTE | 2020-01-25 07:41 | Discharge Inst-Women's Service ---
Discharge Inst-Women's Serv Depart Medication/Instructions New, Converted or Re-Newed RX: RX on Chart Final Diagnosis PPD 2 NVD Problems Reviewed?: Yes Consults/Follow Up Additional Follow Up: Yes Orders/Referrals Dr. Reeves in 6 weeks Activity Driving Instructions: No Driving for 1 Week NO SMOKING: NO SMOKING Nothing Inside Vagina: No Douching, No Madeline, No Tampons Diet Discharge Diet: No Restrictions Symptoms to Report to : Bleeding Excessive, Pain Increased, Fever Over 101 D egrees F, Vaginal Bleeding Increase, Questions/Concerns For Any Problems or Questions: Contact Your Physician ANA REEVES DO Jan 25, 2020 07:41
[2020-01-25] MEDS ORDERED: HYDR-83 PO (07:57)
[2020-01-25] MEDS ORDERED: DIBU30OI TOP (07:57)
[2020-01-25] MEDS ORDERED: IBUP-844 PO (07:57)
[2020-01-25] MEDS ORDERED: DCS100C PO (07:57)
[2020-01-25] MEDS ORDERED: BENZ78AE2 TP (07:57)
[2020-01-25] MEDS ORDERED: IBUP-1773 PO (08:01)
[2020-01-25 09:00] VITALS: BP 101/52
[2020-01-25] MEDS: DOCUSATE SODIUM 100 MG (COLACE) CAP PO SCH (09:00)
[2020-01-25] MEDS: FERROUS SULF 325 MG (IRON) TAB PO SCH (09:00)
== END 2020-01-25 14:30 | disposition home or self-care (01) | DRG 806 ==
LOC: LDRP 18:56 → WSo 18:56 → LDRP 19:20
PROVIDERS: ADMIT Obstetrics & Gynecology; ATTEND Obstetrics & Gynecology
PROC: 0KQM0ZZ Repair Perineum Muscle, Open Approach (ICD-10-PCS; principal; 2020-01-23)
PROC: 10E0XZZ Delivery of Products of Conception, External Approach (ICD-10-PCS; 2020-01-23)
DX: O48.0 Post-term pregnancy (principal); D62 Acute posthemorrhagic anemia; Z37.0 Single live birth; O70.1 Second degree perineal laceration during delivery; O90.81 Anemia of the puerperium; Z3A.40 40 weeks gestation of pregnancy; Z23 Encounter for immunization
CPT/HCPCS: 36415; 81000; 85025; 86850; 86900; 86901; 87088; 90715; 99212

== ENCOUNTER → 2020-10-09 | Outpatient (CLI) | payer BC, MEDICAID ==
[~2020-10-09] MED LIST changes: +ACHD5005 PO; +BENZ78AE5 TP; +DCS100C PO; +DIBU30OI TOP; +IBUP-844 PO
== END ==
LOC: WSo 09:25
PROVIDERS: ATTEND Family Medicine
DX: O92.5 Suppressed lactation (principal)
CPT/HCPCS: 99211

== ENCOUNTER → 2022-04-27 | Outpatient (CLI) | payer BC, MEDICAID ==
[~2022-04-27] MED LIST changes: +ACET-11 PO; -ACET1TAB43 PO; +CATHETER FLUSH 10 ML SYR IV PRN; -DCS100C PO; +DOCU-239 PO; +HOLD METFORMIN - RECEIVED CONTRAST 20 ML VIAL IV SCH; +IOHEXOL 350 MG/ML 100 ML (OMNIPAQUE 350) VIAL IV ONE; +NS 100 ML (IVPB) BAG IV ONE
--- NOTE | 2022-04-27 14:28 | Diagnostic Imaging Report ---
PROCEDURE: CT abdomen and pelvis with contrast. TECHNIQUE: Multiple contiguous axial images were obtained through the abdomen and pelvis after administration of intravenous contrast. Auto Exposure Controls were utilized during the CT exam to meet ALARA standards for radiation dose reduction. All CT scans use one or more of the following dose optimizing techniques: automated exposure control, MA and/or KvP adjustment based on patient size and exam type or iterative reconstruction. INDICATION: Lower pelvic pain. COMPARISON: Prior CT from 07/13/2018. FINDINGS: The lung bases are clear. No discrete liver mass is detected. The liver remains enlarged at 21 cm. The gallbladder is surgically absent. No biliary ductal dilatation is seen. The pancreas and spleen are unremarkable. No adrenal mass is identified. The kidneys are unremarkable. The aorta is nonaneurysmal. The small and large bowel loops appear to be of normal caliber. There is no obstruction. There is moderate stool in the right colon. The uterus contains an IUD. The bladder is unremarkable. There is some free fluid in the pelvis, perhaps owing to a recently ruptured ovarian cyst. No definite inflammatory changes are seen. IMPRESSION: 1. Hepatomegaly. 2. Moderate stool in the right colon, perhaps on the basis of constipation. 3. Free fluid in the pelvis, perhaps secondary to recent rupture of an ovarian cyst. No other significant abnormality is detected. Dictated by: Dictated on workstation # [id number]
== END ==
LOC: RAD 13:52
PROVIDERS: ATTEND Family Medicine
DX: R10.2 Pelvic and perineal pain (principal); R16.0 Hepatomegaly, not elsewhere classified
CPT/HCPCS: 74177

== ENCOUNTER → 2022-05-16 | Outpatient (CLI) | payer BC, MEDICAID ==
[~2022-05-16] MED LIST changes: -CATHETER FLUSH 10 ML SYR IV PRN; -HOLD METFORMIN - RECEIVED CONTRAST 20 ML VIAL IV SCH; -IOHEXOL 350 MG/ML 100 ML (OMNIPAQUE 350) VIAL IV ONE; -NS 100 ML (IVPB) BAG IV ONE
--- NOTE | 2022-05-16 15:46 | Diagnostic Imaging Report ---
PROCEDURE: Pelvic comp/transvaginal sonogram. TECHNIQUE: Complete transabdominal and transvaginal pelvic ultrasound was performed. In addition, limited pelvic Doppler was performed. INDICATION: Pelvic pain. FINDINGS: The uterus measures 10.1 x 4.5 x 5.8 cm. The uterus is retroverted. The endometrium is 2 mm in thickness. There is an IUD centered within the endometrial canal. The right ovary measures 2.9 x 1.3 x 2.4 cm and the left ovary measures 4.0 x 2.4 x 2.8 cm. There is blood flow to the ovaries. The left ovary does contain a 3.6 cm simple cyst. No free fluid is detected. IMPRESSION: 1. The IUD is well centered in the endometrial canal. 2. There is a 3.6 cm simple left ovarian cyst. Dictated by: Dictated on workstation # [id number]
== END ==
LOC: RAD 13:35
PROVIDERS: ATTEND Obstetrics & Gynecology
DX: N83.202 Unspecified ovarian cyst, left side (principal); Z97.5 Presence of (intrauterine) contraceptive device
CPT/HCPCS: 76830; 76856

== ENCOUNTER → 2023-03-15 | Outpatient (CLI) | payer BC, MEDICAID ==
--- NOTE | 2023-03-15 11:04 | Diagnostic Imaging Report ---
INDICATION: Bilateral breast pain. All 4 quadrants of the bilateral breasts as well as retroareolar regions of bilateral breast was evaluated with ultrasound. At the 12:00 location of the right breast, 5-6 cm from the nipple, there is a small ovoid hypoechoic somewhat lobulated nodule measuring 6 x 3 x 6 mm. No internal vascularity is seen. This has the appearance of a small fibroadenoma. No other masses in the right breast are identified. At the lateral left breast 5:00 location, 7-8 cm from the nipple there is a ovoid, lobulated hypoechoic nodule measuring 9 x 5 x 4 mm. This too has the appearance of a fibroadenoma. No other left breast masses are seen. No abnormalities identified in the lateral portions of both breasts at the areas of pain. 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 Even so, follow-up bilateral targeted breast ultrasound of these nodules in 6 months is recommended to confirm stability. BI-RADS Category 3 ACR BI-RADS Category 3: Probably benign findings. Result letter will be mailed to the patient. Note: At least 10% of breast cancer is not imaged by mammography. Dictated by: Dictated on workstation # [id number]
== END ==
LOC: RAD 08:49
PROVIDERS: ATTEND Nurse Practitioner Women's Health
DX: N63.20 Unspecified lump in the left breast, unspecified quadrant (principal); N63.10 Unspecified lump in the right breast, unspecified quadrant